=== PATIENT | male | born 1985 | race Caucasian/White ===

== ENCOUNTER 2017-04-22 09:11 | Emergency (ER) | payer MEDICAID, OTHER ==
[~2017-04-22] VITALS: Ht 157.5 cm; Wt 70.0 kg
[~2017-04-22 09:11] MED LIST: PANT40TA3 PO; TRAM50TA2 PO
[2017-04-22 09:15] VITALS: Ht 157.5 cm; Wt 70.0 kg
[2017-04-22 09:50] LABS: URINE BLOOD (Dip) POC Trace-intact (NEGATIVE)
[2017-04-22] MEDS ORDERED: LIDOCAINE 1% (MDV) 20 ML INJ IM ONE (10:00)
[2017-04-22] MEDS ORDERED: CEFTRIAXONE 250 MG INJ IM ONE (10:00)
[2017-04-22] MEDS ORDERED: AZITHROMYCIN 250 MG TAB PO ONE (10:00)
--- NOTE | 2017-04-22 10:20 | RADRPT ---
PROCEDURE: Chest x-ray CLINICAL INDICATION: cough. TECHNIQUE: One-view frontal. COMPARISON: 04/12/2014 FINDINGS: The cardiac silhouette is normal. No infiltrates are noted. No hilar abnormalities are identified. No pneumothorax or pleural effusions are visualized. 3 mm granuloma in the right upper lobe is unchanged from the previous study. IMPRESSION: 1. No active cardiopulmonary changes. 2. Old granulomatous disease. RPTAT: HGSG .J Luis Ozuna MD, MD Date Time Electronically viewed and signed by .J Luis Ozuna MD, on 04/22/2017 10:19 .G/
[2017-04-22 10:34] LABS: URINE BLOOD (Dip) POC Trace-intact (NEGATIVE)
[2017-04-22] MEDS ORDERED: AZIT250T94 PO (11:05)
[2017-04-22] MEDS ORDERED: LORA10TA3 PO (11:06)
[2017-04-22] MEDS ORDERED: UDROBDM PO (11:06)
--- NOTE | 2017-04-22 11:21 | ERD ---
ER Documentation Chief Complaint Date/Time DATE: 04/22/17 TIME: 11:17 Chief Complaint Complains of a cough x 2 days HPI Patient is a 31-year-old male with no past medical history who presents to the ED with cough for 2 months. He states that his cough is dry and slightly productive. Denies any night sweats, fever, chills or hemoptysis. He also states that he had one episode of white discharge from his penis. Denies seizures or rashes. States that he is sexually active with his boyfriend. States that he has been treated for STDs in the past. Denies abdominal pain, nausea, vomiting or diarrhea. Denies chest pain or shortness of breath. Denies headache or dizziness, neck pain or neck stiffness. No other complaints. Denies leg pain or leg swelling. Denies recent travel or recent surgeries. Denies history of DVT or PE in the past. ROS All systems reviewed and are negative except as per history of present illness. Medications Home Meds Active Scripts Guaifenesin-Dextromethorphan* (Robitussin* DM) 100MG/10MG/5ML Syrup, 5 ML PO Q4H Y for COUGH for 10 Days, ML Prov:DAMARIS YOUSIF PA-C 04/22/17 Loratadine* (Loratadine*) 10 Mg Tablet, 10 MG PO DAILY, #30 TAB Prov:DAMARIS YOUSIF PA-C 04/22/17 Azithromycin* (Zithromax*) 250 Mg Tablet, 250 MG PO .ZPACK DIRECTED, #6 TAB TAKE 500 MG (2 TABS) THE FIRST DAY THEN 250 MG (1 TAB) DAYS 2-5 Prov:DAMARIS YOUSIF PA-C 04/22/17 Pantoprazole* (Protonix*) 40 Mg Tablet.dr, 40 MG PO DAILY, #20 TAB Prov:CINDY NUNEZ MD 07/01/16 Tramadol HCl (Tramadol HCl) 50 Mg Tablet, 50 MG PO Q6 Y for PAIN, #10 TAB Prov:CINDY NUNEZ MD 07/01/16 Allergies Allergies: Coded Allergies: hydromorphone (Verified Allergy, Intermediate, 04/22/17) PMhx/Soc History of Surgery: Yes (APPY 2015) Anesthesia Reaction: No Hx Neurological Disorder: No Hx Respiratory Disorders: No Hx Cardiac Disorders: No Hx Psychiatric Problems: No Hx Miscellaneous Medical Probl: No Hx Alcohol Use: No Hx Substance Use: Yes (MARIJUANA) Hx Tobacco Use: No FmHx Family History: No coronary disease, No diabetes, No other Physical Exam Vitals Vital Signs Date Time Temp Pulse Resp B/P Pulse Ox O2 Delivery O2 Flow Rate FiO2 04/22/17 09:15 98.0 124 20 171/98 98 Physical Exam GENERAL: Well-developed, well-nourished male. Appears in no acute distress. HEAD: Normocephalic, atraumatic. EYES: Pupils are equally reactive bilaterally. EOMs grossly intact. No conjunctival erythema. ENT: Moist mucous membranes. No uvula deviation. No kissing tonsils. No exudates. NECK: Supple. No lymphadenopathy or thyromegaly. No meningismus. negative kernig. negative brudinski. LUNG: Clear to auscultation bilaterally. No rhonchi, wheezing, rales or coarse breath sounds. HEART: Regular rate and rhythm. No murmurs, rubs or gallops. ABDOMEN: No scars, ecchymosis or rashes noted. Soft, nontender, and nondistended. Positive bowel sounds in all four quadrants. No rebound tenderness , no guarding. (-) McBurneys point tenderness. No CVA tenderness. BACK: No midline tenderness. Extremities: Equal pulses bilaterally. No peripheral clubbing, cyanosis or edema. No unilateral leg swelling. NEUROLOGIC: Alert and oriented. Moving all four extremities. 5/5 strength in all extremities. Normal speech. Steady gait. SKIN: Normal color. Warm and dry. No rashes or lesions. Capillary refill < 2 seconds Results 24 hrs Laboratory Tests Test 04/22/17 09:54 Bedside Urine pH (LAB) 7.0 Bedside Urine Protein (LAB) Negative Bedside Urine Glucose (UA) Negative Bedside Urine Ketones (LAB) Negative Bedside Urine Blood Trace-intact Bedside Urine Nitrite (LAB) Negative Bedside Urine Leukocyte Esterase (L Negative Current Medications Medications (Trade) Dose Ordered Sig/Osmel Route PRN Reason Start Time Stop Time Status Last Admin Dose Admin Azithromycin (Zithromax) 1,000 mg ONCE ONCE PO 04/22/17 10:00 04/22/17 10:01 DC 04/22/17 09:53 Ceftriaxone Sodium (Rocephin) 250 mg ONCE ONCE IM 04/22/17 10:00 04/22/17 10:01 DC 04/22/17 09:52 Lidocaine (Xylocaine 1% (Mdv) 20 ml) 20 ml ONCE ONCE IM 04/22/17 10:00 04/22/17 10:01 DC 04/22/17 09:52 Procedures/MDM ER COURSE: I kept the patient and/or family informed of laboratory and diagnostic imaging results throughout the emergency room course. IMAGING STUDIES [place] [id number] Radiology Main Line: [phone] DIAGNOSTIC IMAGING REPORT Patient: MARLEE BRAVO : 1985 Age: 31 Sex: M MR #: [id number] DOS: 04/22/17 0939 Ordering MD: DAMARIS YOUSIF PA-C Location: [facility] Room/Bed: PROCEDURE: Chest x-ray CLINICAL INDICATION: cough. TECHNIQUE: One-view frontal. COMPARISON: 04/12/2014 FINDINGS: The cardiac silhouette is normal. No infiltrates are noted. No hilar abnormalities are identified. No pneumothorax or pleural effusions are visualized. 3 mm granuloma in the right upper lobe is unchanged from the previous study. IMPRESSION: 1. No active cardiopulmonary changes. 2. Old granulomatous disease. RPTAT: HGSG .J Luis Ozuna MD, MD Date Time Electronically viewed and signed by .J Luis Ozuna MD, on 04/22/2017 10: 19 .G/ CC: DAMARIS YOUSIF PA-C MEDICATIONS Azithromycin 1 g and Rocephin 250 mg IM. Tolerated well with no adverse reaction. Urine was sent for culture of gonorrhea and chlamydia. Urine dip was negative for nitrites or leukocytes. MEDICAL DECISION MAKING: This is a 31-year-old male who presents with cough for 2 months and one episode of penile discharge. Vital signs were reviewed. Patient is afebrile. Patient is not hypoxic. Patient is not toxic or ill-appearing. Patient has 20 which is likely related to his cough as patient is seen coughing here in the ED. Low suspicion for ACS, PE, AAA, dissection, dvt, patient does not have shortness of breath and there is no leg swelling or recent travel and I have low suspicion for PE. Low suspicion for pneumonia, PE, pneumothorax, ACS, epiglottitis, obstruction, TB, pertussis, meningitis, sepsis. DISCHARGE: At this time, patient is stable for discharge and outpatient management with no new complaints during the ER course. Patient was sent home with azithromycin, Robitussin and Zyrtec. All copy of imaging report was given to patient and explained that he should follow-up with his primary care provider. I also advised patient that all partners must be treated for STDs.. Patient will be discharged home with instructions to recheck for new or worsening symptoms such as fever, nausea, weakness, LOC and to follow up with primary care in the next 1 -2 days. Patient was advised to return to the ER for any new or worsening symptoms. Plan was discussed and patient and/or family understands and agrees. Home instructions were given. Departure Diagnosis: Primary Impression: Potential exposure to STD Additional Impression: Cough Condition: Stable Patient Instructions: Cough, Chronic, Uncertain Cause, (Adult) Additional Instructions: Call your primary care doctor TOMORROW for an appointment during the next 1-2 days.See the doctor sooner or return here if your condition worsens before your appointment time. DAMARIS YOUSIF PA-C Apr 22, 2017 11:21
== END 2017-04-22 11:14 | disposition home or self-care (01) ==
LOC: FTE 09:11
DX: R05 Cough (principal); Z20.2 Contact with and (suspected) exposure to infections with a predominantly sexual mode of transmission
CPT/HCPCS: 71010; 81003; 87591; 96372; J0696; Z7502; Z7610

== ENCOUNTER 2018-02-27 12:46 | Emergency (ER) | END 2018-02-27 15:36 | disposition home or self-care (01) ==

== ENCOUNTER 2018-03-08 06:52 | Emergency (ER) | END 2018-03-08 09:28 | disposition home or self-care (01) ==

== ENCOUNTER 2019-07-05 19:19 | Emergency (ER) | payer OTHER ==
[~2019-07-05] VITALS: Ht 165.1 cm; Wt 62.5 kg
[~2019-07-05 19:19] MED LIST changes: +AMOX1TAB10 PO; +D-ME473S2 PO; +IBUP-1542 PO; -PANT40TA3 PO; -TRAM50TA2 PO; +[UNRECOGNIZED DRUG - CODE] IM
[2019-07-05 19:22] VITALS: BP 139/78; PULSE 117; RESP 16; Ht 165.1 cm; Wt 62.5 kg
== END 2019-07-05 19:31 | disposition home or self-care (01) ==
LOC: E/R 19:19
DX: H66.001 Acute suppurative otitis media without spontaneous rupture of ear drum, right ear (principal); J06.9 Acute upper respiratory infection, unspecified
CPT/HCPCS: 99283